=== PATIENT | male | born 1975 | race Caucasian/White ===

== ENCOUNTER → 2016-06-24 | Outpatient (CLI) | payer MEDICAID ==
[~2016-06-24] MED LIST: ASP81TEC PO; DILT120C PO; MULT-35 PO; NO HOME MEDS; OMEP20TA33 PO; RANI150T15 PO; SUCR1TAB36 PO
[2016-06-24 14:43] LABS: CHOLESTEROL 177 MG/DL (< 200); DIRECT LDL 117 MG/DL (1-129); TRIGLYCERIDES 127 MG/DL (<150); VLDL CHOLESTEROL 25 MG/DL (5-40)
== END ==
LOC: LAB 14:22
PROVIDERS: ATTEND Internal Medicine Cardiovascular Disease
DX: I25.10 Atherosclerotic heart disease of native coronary artery without angina pectoris (principal); R07.9 Chest pain, unspecified; I34.0 Nonrheumatic mitral (valve) insufficiency; I07.1 Rheumatic tricuspid insufficiency
CPT/HCPCS: 36415; 80061

== ENCOUNTER → 2016-06-29 | Outpatient (CLI) | payer MEDICAID ==
--- NOTE | 2016-06-29 14:06 | Diagnostic Imaging Report ---
PROCEDURE: US Gallbladder. TECHNIQUE: Multiple real-time grayscale images were obtained over the right upper quadrant in various projections. INDICATION: Heartburn. Chest pain. FINDINGS: The pancreas visualized portions appear unremarkable. The liver demonstrates no focal mass. It is slightly enlarged measuring 20 cm in craniocaudal dimension in the right hepatic lobe level. Hepatopetal flow in the portal vein is seen. There is a 1.1 cm hyperechoic lesion seen in the gallbladder without shadowing compatible with sludge ball. It was seen moving within the gallbladder lumen during the scan. There are multiple gallbladder polyps as well up to 4 mm in size. No stones or wall thickening seen. No pericholecystic fluid. The CBD is 2 mm in caliber. The right kidney is 9.7 cm in length with no hydronephrosis or focal lesion. No ascites or fluid collection is seen. Sonographic Beltran's sign is reportedly negative. IMPRESSION: 1. Mild hepatomegaly with no focal liver mass. 2. The gallbladder has multiple polyps up to 4 mm in size and a sludge ball in the abdomen measuring 1.1 cm. No gallstones or evidence of cholecystitis, however. Dictated by: Dictated on workstation # [id number]
== END ==
LOC: RAD 06:48
PROVIDERS: ATTEND Surgery
DX: K82.4 Cholesterolosis of gallbladder (principal); R16.0 Hepatomegaly, not elsewhere classified
CPT/HCPCS: 76705

== ENCOUNTER 2016-07-05 15:40 | Outpatient (CLI) | payer MEDICAID ==
--- OUTSIDE RECORDS SUMMARY | 2016-07-04 05:49 | XMS REPORT | Continuity of Care Document ---
Author Author [facility] C[facility] of [facility] Ctr [facility] Address Unknown Phone Unavailable Allergies Medications Problems Date Dx Coded Attending Type Code Diagnosis Diagnosed By 12/26/2008 ED CRUZ MD 692.9 CONTACT DERMATITIS AND OTHER ECZEMA UNSPECIFIED CAUSE 12/26/2008 ED CRUZ MD 780.2 SYNCOPE AND COLLAPSE 12/26/2008 ED CRUZ MD V17.49 FAMILY HISTORY OF OTHER CARDIOVASCULAR DISEASES 12/26/2008 ED CRUZ MD V18.0 FAMILY HISTORY OF DIABETES MELLITUS 12/26/2008 MUNIRA MIGUEL DO 692.9 CONTACT DERMATITIS AND OTHER ECZEMA UNSPECIFIED CAUSE 12/26/2008 MUNIRA MIGUEL DO 780.2 SYNCOPE AND COLLAPSE 12/26/2008 MUNIRA MIGUEL DO V17.49 FAMILY HISTORY OF OTHER CARDIOVASCULAR DISEASES 12/26/2008 MUNIRA MIGUEL DO V18.0 FAMILY HISTORY OF DIABETES MELLITUS 12/26/2008 MICHAEL BOTELLO APRN S 692.9 CONTACT DERMATITIS AND OTHER ECZEMA UNSPECIFIED CAUSE 12/26/2008 ATA BOTELLO APRNA S 780.2 SYNCOPE AND COLLAPSE 12/26/2008 ATA BOTELLO APRNA S V17.49 FAMILY HISTORY OF OTHER CARDIOVASCULAR DISEASES 12/26/2008 MICHAEL BOTELLO APRN S V18.0 FAMILY HISTORY OF DIABETES MELLITUS 12/26/2008 ENRIQUE ANAYA VICENTA R 692.9 CONTACT DERMATITIS AND OTHER ECZEMA UNSPECIFIED CAUSE 12/26/2008 ENRIQUE SALES CLERK, VICENTA R 780.2 SYNCOPE AND COLLAPSE 12/26/2008 ENRIQUE ANAYA VICENTA R V17.49 FAMILY HISTORY OF OTHER CARDIOVASCULAR DISEASES 12/26/2008 ENRIQUE ANAYA VICENTA R V18.0 FAMILY HISTORY OF DIABETES MELLITUS 01/04/2009 ED CRUZ MD 251.2 HYPOGLYCEMIA UNSPECIFIED 01/04/2009 MUNIRA MIGUEL DO 251.2 HYPOGLYCEMIA UNSPECIFIED 01/04/2009 ROSMERY SALES CLERK, MICHAEL S 251.2 HYPOGLYCEMIA UNSPECIFIED 01/04/2009 VICENTA NUNEZ APRN R 251.2 HYPOGLYCEMIA UNSPECIFIED 11/15/2010 ED CRUZ MD 724.3 SCIATICA 11/15/2010 MUNIRA MIGUEL DO K 724.3 SCIATICA 11/15/2010 MICHAEL BOTELLO APRN S 724.3 SCIATICA 11/15/2010 VICENTA NUNEZ APRN R 724.3 SCIATICA 04/25/2011 ED CRUZ MD 719.41 joint pain, localized in the left shoulder 04/25/2011 MUNIRA MIGUEL DO K 719.41 joint pain, localized in the left shoulder 04/25/2011 MICHAEL BOTELLO APRN S 719.41 joint pain, localized in the left shoulder 04/25/2011 VICENTA NUNEZ APRN R 719.41 joint pain, localized in the left shoulder 07/20/2011 ED CRUZ MD 530.81 ESOPHAGEAL REFLUX 07/20/2011 ED CRUZ MD 715.11 OSTEOARTHROSIS LOCALIZED PRIMARY INVOLVING SHOULDER REGION 07/20/2011 MUNIRA MIGUEL DO K 530.81 ESOPHAGEAL REFLUX 07/20/2011 KELTON MIGUEL DOA K 715.11 OSTEOARTHROSIS LOCALIZED PRIMARY INVOLVING SHOULDER REGION 07/20/2011 MICHAEL BOTELLO APRN S 530.81 ESOPHAGEAL REFLUX 07/20/2011 MICHAEL BOTELLO APRN S 715.11 OSTEOARTHROSIS LOCALIZED PRIMARY INVOLVING SHOULDER REGION 07/20/2011 VICENTA NUNEZ APRN R 530.81 ESOPHAGEAL REFLUX 07/20/2011 VICENTA NUNEZ APRN R 715.11 OSTEOARTHROSIS LOCALIZED PRIMARY INVOLVING SHOULDER REGION 01/06/2012 ED CRUZ MD V05.3 TWINRIX DX 01/06/2012 ED CRUZ MD V06.1 TDAP DX 01/06/2012 ED CRUZ MD V74.1 TB SCREENING 01/06/2012 KELTON MIGUEL DOA K V05.3 TWINRIX DX 01/06/2012 KELTON MIGUEL DOA K V06.1 TDAP DX 01/06/2012 KELTON MIGUEL DOA K V74.1 TB SCREENING 01/06/2012 MICHAEL BOTELLO APRN V05.3 TWINRIX DX 01/06/2012 MICHAEL BOTELLO APRN S V06.1 TDAP DX 01/06/2012 MICHAEL BOTELLO APRN V74.1 TB SCREENING 01/06/2012 VICENTA NUNEZ APRN V05.3 TWINRIX DX 01/06/2012 VICENTA NUNEZ APRN V06.1 TDAP DX 01/06/2012 VICENTA NUNEZ APRN V74.1 TB SCREENING 09/30/2013 ED CRUZ MD 729.5 PAIN IN LIMB 09/30/2013 ED CRUZ MD V70.0 EXAM - ROUTINE H&P 09/30/2013 MIGUEL DO, MUNIRA K 729.5 PAIN IN LIMB 09/30/2013 MIGUEL DO, MUNIRA K V70.0 EXAM - ROUTINE H&P 09/30/2013 MICHAEL BOTELLO APRN 729.5 PAIN IN LIMB 09/30/2013 MICHAEL BOTELLO APRN V70.0 EXAM - ROUTINE H&P 09/30/2013 VICENTA NUNEZ APRN 729.5 PAIN IN LIMB 09/30/2013 VICENTA NUNEZ APRN V70.0 EXAM - ROUTINE H&P 10/23/2013 MIGUEL DO, MUNIRA K 726.10 DISORDERS OF BURSAE AND TENDONS IN SHOULDER REGION UNSPECIFIED 10/23/2013 MICHAEL BOTELLO APRN 726.10 DISORDERS OF BURSAE AND TENDONS IN SHOULDER REGION UNSPECIFIED 10/23/2013 VICENTA NUNEZ APRN 726.10 DISORDERS OF BURSAE AND TENDONS IN SHOULDER REGION UNSPECIFIED 02/16/2014 MICHAEL BOTELLO APRN 719.47 PAIN- FOOT 02/16/2014 VICENTA NUNEZ APRN 719.47 PAIN- FOOT 08/08/2014 VICENTA NUNEZ APRN 719.46 PAIN IN JOINT INVOLVING LOWER LEG Procedures Code Description Performed By Performed On JOINT INJECTION- INTERMEDIATE JOINT 10/23/2013 01881 XRAY FOOT LEFT 2 VIEWS 02/16/2014 33692 XRAY KNEE RIGHT 1 OR 2 VIEWS 08/08/2014 Results Encounters ACCT No. Visit Date/Time Discharge Status Pt. Type Provider Facility Loc./Unit Complaint [id number] 08/08/2014 12:22:00 08/08/2014 23: 59:59 CLS Outpatient VICENTA NUNEZ APRN [id number] 02/16/2014 15:33:00 02/16/2014 23: 59:59 CLS Outpatient MICHAEL BOTELLO APRN [id number] 10/23/2013 15:31:00 10/23/2013 23: 59:59 CLS Outpatient MUNIRA MIGUEL DO [id number] 09/30/2013 08:57:00 09/30/2013 23: 59:59 CLS Outpatient ANTHONY BOYCE, ED
[~2016-07-05] VITALS: Ht 180.3 cm; Wt 83.5 kg
[~2016-07-05 15:40] MED LIST changes: -MULT-35 PO; -OMEP20TA33 PO; -RANI150T15 PO; -SUCR1TAB36 PO
[2016-07-05] MEDS ORDERED: MULT-35 PO (15:44)
[2016-07-05] MEDS ORDERED: RANI150T15 PO (15:44)
[2016-07-06] MEDS ORDERED: SUCR1TAB36 PO (13:14)
[2016-07-06] MEDS ORDERED: OMEP20TA33 PO (13:14)
== END 2016-07-05 15:49 ==
LOC: PREOP 15:40
PROVIDERS: ATTEND Surgery
DX: Z01.818 Encounter for other preprocedural examination (principal); K21.9 Gastro-esophageal reflux disease without esophagitis

== ENCOUNTER 2016-07-06 11:46 | Day surgery (SDC) | payer MEDICAID ==
[~2016-07-06] VITALS: Ht 180.3 cm; Wt 83.5 kg
[~2016-07-06 11:46] MED LIST changes: +MULT-35 PO; +RANI150T15 PO
--- OUTSIDE RECORDS SUMMARY | 2016-07-06 11:49 | XMS REPORT | Continuity of Care Document ---
Author Author [facility], [facility] Ctr of [facility] Ctr [facility] Address Unknown Phone Unavailable Allergies [...] APRNA S 780.2 SYNCOPE AND COLLAPSE 12/26/2008 MICHAEL BOTELLO APRN S V17.49 FAMILY HISTORY OF OTHER CARDIOVASCULAR DISEASES 12/26/2008 MICHAEL BOTELLO APRN S V18.0 FAMILY HISTORY OF DIABETES MELLITUS 12/26/2008 ENRIQUE ANAYA VICENTA R 692.9 CONTACT DERMATITIS AND OTHER ECZEMA UNSPECIFIED CAUSE 12/26/2008 ENRIQUE DERRICK BOAT CAPTAIN, VICENTA R 780.2 SYNCOPE AND COLLAPSE 12/26/2008 ENRIQUE ANAYA VICENTA R V17.49 FAMILY HISTORY OF OTHER CARDIOVASCULAR DISEASES 12/26/2008 ENRIQUE ANAYA VICENTA R V18.0 FAMILY HISTORY OF DIABETES MELLITUS 01/04/2009 ED CRUZ MD 251.2 HYPOGLYCEMIA UNSPECIFIED 01/04/2009 MUNIRA MIGUEL DO 251.2 HYPOGLYCEMIA UNSPECIFIED 01/04/2009 ROSMERY DERRICK BOAT CAPTAIN, MICHAEL S 251.2 HYPOGLYCEMIA UNSPECIFIED 01/04/2009 VICENTA [...] Performed On JOINT INJECTION- INTERMEDIATE JOINT 10/23/2013 85195 XRAY FOOT LEFT 2 VIEWS 02/16/2014 19080 XRAY KNEE RIGHT 1 OR 2 VIEWS 08/08/2014 Results Encounters ACCT No. Visit Date/Time Discharge Status Pt. Type Provider Facility Loc./Unit Complaint [id number] 08/08/2014 12:22:00 08/08/2014 23: 59:59 CLS Outpatient VICENTA NUNEZ APRN [id number] 02/16/2014 15:33:00 02/16/2014 23: 59:59 CLS Outpatient MICHAEL BOTELLO APRN [id number] 10/23/2013 15:31:00 10/23/2013 23: 59:59 CLS Outpatient MUNIRA MIGUEL DO [id number] 09/30/2013 08:57:00 09/30/2013 23: 59:59 CLS Outpatient ANTHONY BOYCE, ED
--- OUTSIDE RECORDS SUMMARY | 2016-07-06 11:50 | XMS REPORT | Continuity of Care Document ---
Author Author Count Includes [facility] Ctr of [facility] Ctr [facility] Address Unknown Phone Unavailable Allergies Medications [...] AND OTHER ECZEMA UNSPECIFIED CAUSE 12/26/2008 ENRIQUE PERFORMANCE SOLUTIONS SPECIALIST, VICENTA R 780.2 SYNCOPE AND COLLAPSE 12/26/2008 ENRIQUE ANAYA VICENTA R V17.49 FAMILY HISTORY OF OTHER CARDIOVASCULAR DISEASES 12/26/2008 ENRIQUE ANAYA VICENTA R V18.0 FAMILY HISTORY OF DIABETES MELLITUS 01/04/2009 ED CRUZ MD 251.2 HYPOGLYCEMIA UNSPECIFIED 01/04/2009 MUNIRA MIGUEL DO 251.2 HYPOGLYCEMIA UNSPECIFIED 01/04/2009 ROSMERY PERFORMANCE SOLUTIONS SPECIALIST, MICHAEL S 251.2 HYPOGLYCEMIA UNSPECIFIED 01/04/2009 VICENTA [...] APRN S 530.81 ESOPHAGEAL REFLUX 07/20/2011 MICHAEL OBTELLO APRN S 715.11 OSTEOARTHROSIS LOCALIZED PRIMARY INVOLVING [...] Performed On JOINT INJECTION- INTERMEDIATE JOINT 10/23/2013 83162 XRAY FOOT LEFT 2 VIEWS 02/16/2014 83844 XRAY KNEE RIGHT 1 OR 2 VIEWS 08/08/2014 Results Encounters ACCT No. Visit Date/Time Discharge Status Pt. Type Provider Facility Loc./Unit Complaint [id number] 08/08/2014 12:22:00 08/08/2014 23: 59:59 CLS Outpatient VICENTA NUNEZ APRN [id number] 02/16/2014 15:33:00 02/16/2014 23: 59:59 CLS Outpatient MICHAEL BOTELLO APRN [id number] 10/23/2013 15:31:00 10/23/2013 23: 59:59 CLS Outpatient MUNIRA MIGUEL DO [id number] 09/30/2013 08:57:00 09/30/2013 23: 59:59 CLS Outpatient ANTHONY BOYCE, ED
[2016-07-06] MEDS ORDERED: NS IV 1000 ML 1,000 ML IV STA (11:55)
[2016-07-06] MEDS ORDERED: NS IV 1000 ML 1,000 ML ONE (11:57)
[2016-07-06] MEDS ORDERED: HURRICAINE EXT TUBE (BENZOCAINE) XX PRN (12:00)
[2016-07-06] MEDS ORDERED: MIDAZOLAM 2 MG/2 ML (VERSED) VIAL ONE (12:11)
[2016-07-06] MEDS ORDERED: proPOfol 200 MG/20 ML (DIPRIVAN) VIAL IV ONE (12:11)
[2016-07-06 12:14] VITALS: BP 120/86
--- NOTE | 2016-07-06 12:57 | Progress Note-Pre Operative ---
Pre-Operative Progress Note H&P Reviewed The H&P was reviewed, patient examined and no changes noted. Date H&P Reviewed: Jul 06, 2016 Time H&P Reviewed: 12:54 Pre-Operative Diagnosis: Gastritis MARGOT BURKS DO Jul 06, 2016 12:57
--- NOTE | 2016-07-06 13:12 | Progress Note-Post Operative ---
Post-Operative Progess Note Emt/Dispatcher None Pre-Operative Diagnosis Gastritis Post-Operative Diagnosis Mod-severe Gastritis, old healing ulcers Post-Op Procedure Note Date of Procedure: Jul 06, 2016 Name of Procedure: EGD with bx, duodenum, antrum and cardia Anesthesia Type iv sedation by Dr. Birch Estimated blood loss (mL): scant Specimen(s) collected 3 bx, antrum, 1st portion duodenum, cardia MARGOT BURKS DO Jul 06, 2016 13:12
[2016-07-06] MEDS ORDERED: OMEP20TA33 PO (13:14)
[2016-07-06] MEDS ORDERED: SUCR1TAB36 PO (13:14)
--- NOTE | 2016-07-06 13:16 | Endoscopy Discharge Instruct ---
Findings Findings 1.: Gastritis Discharge Instructions - Activity: You might feel a little sleepy until tomorrow. This is due to the medicine you received to relax you. Until tomorrow, you should: NOT drive a car, operate machinery or power tools. NOT drink any alcoholic beverages. NOT make any important decisions or sign importortant papers. Do not return to work until tomorrow, unless otherwise instructed. Resume previous activities tomorrow. Diet: Start by taking liquids. If you tolerate liquids, advance to solid food. Instructions: 1.: Reflux Diet, EGD in 1 year Notify Physician - If you experience excessive bleeding, unusual abdominal pain, fever, or chest pain, contact your doctor immediately. Phone number [phone] Anticoagulants - Hold aspirin Follow-Up: Follow Up: Weeks (one week) - I have received and understand the above instructions and will call my doctor if I have any further questions. Patient Signature Date Nurse Signature Other (Relationship) MARGOT BURKS DO Jul 06, 2016 13:16
[2016-07-06 13:35] VITALS: BP 105/66
[2016-07-06 14:00] VITALS: BP 107/79
[2016-07-06 15:16] VITALS: BP 107/79
--- NOTE | 2016-07-07 23:42 | OPERATIVE REPORT ---
PROCEDURE PHYSICIAN: MARGOT BURKS DATE OF PROCEDURE: 07/06/2016 PREOPERATIVE DIAGNOSIS: Possible gastritis. POSTOPERATIVE DIAGNOSIS: Moderate to severe gastritis. PROCEDURE: EGD with 3 biopsies, 1 in the duodenum, 1 in the antrum, and 1 in the cardia. SURGEON: Dr. Bonnie CHANEY ASSIST: None. ANESTHESIA: IV sedation by Dr. Birch with propofol. SPECIMEN: 1 biopsy from the duodenum, 1 from antrum, and 1 from the cardia. BLOOD LOSS: Scant. FLUIDS: Per anesthesia. POSTOPERATIVE: Stable. INDICATIONS FOR THE PROCEDURE: The patient is a 41-year-old male has been having multiple episodes of chest pains. He has had a full cardiac work-up and needed to find out if he had any gastric problems. Also ultrasound had been ordered. FINDINGS: The patient had severe gastritis, especially in the cardia and then looked like in the antrum and actually first portion of the duodenum, had some healing ulcers. PROCEDURE NOTE: After informed consent was obtained, the patient was brought to the endoscopy suite and placed in the left lateral decubitus position. He was administered IV sedation and monitored the entire time by the anesthesiologist. The scope was inserted down the mouth, passed the oropharynx, into the esophagus and down in the stomach. Upon entering the stomach, noted some erythema and severe gastritis, pushed through to the antrum, saw some possibly old healing ulcers here and then pushed into the first portion of duodenum and again saw some redness and little bit that may have been possibly old healing ulcers. I took a picture this and then did a biopsy here and removed the scope, did a biopsy antrum and then pulled it back a little bit further and then did a biopsy of the cardia of the stomach. Then retroflexed, did not really appear to have a large hiatal hernia, but may have had a very small one and then reversed this and then slowly withdrew the scope up to the GE junction. Took a picture, looked good and then up the esophagus and out the oropharynx. The patient tolerated the procedure and he was transferred to recovery room in stable condition. Job ID: [id number] Dictated Date: 07/06/2016 13:18:49 [employer]orer [employer] Date: 07/07/2016 23:31:48 / reuben
== END 2016-07-06 14:05 | disposition home or self-care (01) ==
LOC: ENDO 11:46
PROVIDERS: ATTEND Surgery
DX: K21.9 Gastro-esophageal reflux disease without esophagitis (principal); K25.7 Chronic gastric ulcer without hemorrhage or perforation; K29.50 Unspecified chronic gastritis without bleeding; B96.81 Helicobacter pylori [H. pylori] as the cause of diseases classified elsewhere
CPT/HCPCS: 88305

== ENCOUNTER → 2016-07-26 | Outpatient (CLI) | payer MEDICAID ==
[~2016-07-26] MED LIST changes: +OMEP20TA33 PO; +SUCR1TAB36 PO
--- OUTSIDE RECORDS SUMMARY | 2016-07-26 13:01 | XMS REPORT | Continuity of Care Document ---
Author Author [facility] Ctr of [facility] Ctr [facility] Address Unknown Phone Unavailable Allergies Medications Problems [...] AND OTHER ECZEMA UNSPECIFIED CAUSE 12/26/2008 ENRIQUE ARNP, VICENTA R 780.2 SYNCOPE AND COLLAPSE 12/26/2008 ENRIQUE ANAYA VICENTA R V17.49 FAMILY HISTORY OF OTHER CARDIOVASCULAR DISEASES 12/26/2008 ENRIQUE ANAYA VICENTA R V18.0 FAMILY HISTORY OF DIABETES MELLITUS 01/04/2009 ED CRUZ MD 251.2 HYPOGLYCEMIA UNSPECIFIED 01/04/2009 MUNIRA MIGUEL DO 251.2 HYPOGLYCEMIA UNSPECIFIED 01/04/2009 ROSMERY ARNP, MICHAEL S 251.2 HYPOGLYCEMIA UNSPECIFIED 01/04/2009 VICENTA [...] Performed On JOINT INJECTION- INTERMEDIATE JOINT 10/23/2013 62848 XRAY FOOT LEFT 2 VIEWS 02/16/2014 00679 XRAY KNEE RIGHT 1 OR 2 VIEWS 08/08/2014 Results Encounters ACCT No. Visit Date/Time Discharge Status Pt. Type Provider Facility Loc./Unit Complaint [id number] 08/08/2014 12:22:00 08/08/2014 23: 59:59 CLS Outpatient VICENTA NUNEZ APRN [id number] 02/16/2014 15:33:00 02/16/2014 23: 59:59 CLS Outpatient MICHAEL BOTELLO APRN [id number] 10/23/2013 15:31:00 10/23/2013 23: 59:59 CLS Outpatient MUNIRA MIGUEL DO [id number] 09/30/2013 08:57:00 09/30/2013 23: 59:59 CLS Outpatient ANTHONY BOYCE, ED
--- NOTE | 2016-07-27 08:18 | ECHOCARDIOGRAPHY REPORT ---
PROCEDURE PHYSICIAN: KRISTI POWELL DATE OF PROCEDURE: 07/26/2016 TWO DIMENSIONAL ECHOCARDIOGRAM REPORT PRIMARY PHYSICIAN: OTHER PHYSICIAN: REFERRING PHYSICIAN: Dr. Shireen Biswas ORDERING PHYSICIAN: INDICATION FOR THE PROCEDURE: 1. Coronary artery disease. 2. Chest pain. MEASUREMENTS DERIVED VALUES LV DIAMETER (LAX) NORMALS NORMALS Diastolic 4.7 (3.6-5.2) Eject. Fract. 60% (60%+/-6%) Systolic (2.3-3.9) Diastolic Vol. % Shortening (0.22-0.42) Systolic Vol. Aortic Root IVS THICKNESS Diastolic 1 (0.6-1.1) LVPW THICKNESS Diastolic 1 (0.6-1.1) LA DIAMETER Systolic 2.5 (2.1-3.7) FINDINGS: 1. Technical quality is good. 2. The left ventricle is normal in size with normal contractility. Systolic function appeared to be normal. Estimated ejection fraction 60%. 3. The left atrium is normal in size. No clot or thrombus were seen within the left atrium. 4. The right atrium and right ventricle are normal in size. No clot or thrombus were seen within the right side. 5. Mitral valve evaluation showed mitral annular calcification with mild mitral regurgitation noted by color Doppler flow. No mitral valve prolapse. No mitral valve stenosis. 6. Aortic valve is trileaflet with normal opening and closing pattern. No significant aortic stenosis or regurgitation was seen. 7. Tricuspid valve is normal in morphology with mild tricuspid regurgitation noted by color Doppler flow. Doppler across tricuspid valve estimated pulmonary artery pressure of 22+ right atrial pressure. 8. Pulmonic valve is functioning normally. 9. No pericardial effusion. IN CONCLUSION: 1. Normal left ventricular size and systolic function. Estimated ejection fraction 60%. 2. Mild mitral and tricuspid regurgitation. 3. Estimated pulmonary artery pressure of 30 mmHg. Job ID: [id number] Dictated Date: 07/26/2016 17:10:10 Scrap Worker Date: 07/27/2016 08:15:20 / reuben
--- NOTE | 2016-07-27 09:33 | STRESS TEST ---
PROCEDURE PHYSICIAN: KRISTI POWELL DATE OF PROCEDURE: 07/26/2016 EXERCISE STRESS ECHOCARDIOGRAM REPORT: REFERRING PHYSICIAN: Dr. Shireen Biswas. INDICATION: 1. Coronary artery disease. 2. Chest pain. BASELINE HEART RATE: 63 BASELINE BLOOD PRESSURE: 112/66 BASELINE EKG: Sinus rhythm with no ischemic changes. IN SUMMARY: The patient started exercising with a baseline heart rate, EKG and blood pressure mentioned above. He was able to exercise for a total of 12 minutes on standard Jaspreet protocol, achieving maximum heart rate of 166, which is 94% of maximum expected heart rate. With peak exercise level, EKG was showing no ischemic changes. Blood pressure was 155/65. During recovery, heart rate and blood pressure returned to baseline. EKG returned to baseline. Echocardiographic images were acquired and reviewed in the parasternal long axis, parasternal short axis, apical 4 chamber and apical 2 chamber views. Review of the images showed normal left ventricular size with normal contractility with no ischemic changes. IN CONCLUSION: 1. Excellent exercise tolerance a total of 12 minutes on standard Jaspreet protocol. Total of 12.8 METs achieving 94% of maximum expected heart rate. 2. Appropriate heart rate and blood pressure response to exercise, returned to baseline during recovery. 3. No arrhythmia or ischemic changes EKG during the stress test. 4. Normal echocardiographic images at rest and with peak stress images with no ischemic changes with normal contractility and normal ejection fraction. Job ID: [id number] Dictated Date: 07/26/2016 17:14:[address] Date: 07/27/2016 09:30:01 / reuben
== END ==
LOC: CARD 12:57
PROVIDERS: ATTEND Internal Medicine Cardiovascular Disease
DX: I25.10 Atherosclerotic heart disease of native coronary artery without angina pectoris (principal); R07.9 Chest pain, unspecified; I34.0 Nonrheumatic mitral (valve) insufficiency; I07.1 Rheumatic tricuspid insufficiency
CPT/HCPCS: 93306; 93351

== ENCOUNTER → 2016-10-15 | Outpatient (CLI) | payer MEDICAID ==
[2016-10-15 22:44] LABS: ALBUMIN 4.6 G/DL (3.2-4.5); BILIRUBIN,DIRECT 0.2 MG/DL (0.0-0.3); BILIRUBIN,INDIRECT 0.6 MG/DL; BILIRUBIN,TOTAL 0.8 MG/DL (0.1-1.0); TOTAL PROTEIN 7.4 G/DL (6.4-8.2)
== END ==
LOC: LABNPT 22:18
PROVIDERS: ATTEND Physician Assistant
DX: E78.2 Mixed hyperlipidemia (principal)
CPT/HCPCS: 80061; 80076

== ENCOUNTER → 2017-02-09 | Outpatient (CLI) | payer MEDICAID ==
[2017-02-09 12:04] LABS: ALBUMIN 4.3 GM/DL (3.2-4.5); BILIRUBIN,DIRECT 0.2 MG/DL (0.0-0.3); BILIRUBIN,INDIRECT 0.5 MG/DL; BILIRUBIN,TOTAL 0.7 MG/DL (0.1-1.0); TOTAL PROTEIN 7.2 GM/DL (6.4-8.2)
== END ==
LOC: LAB 11:39
PROVIDERS: ATTEND Physician Assistant
DX: I25.10 Atherosclerotic heart disease of native coronary artery without angina pectoris (principal); E78.2 Mixed hyperlipidemia
CPT/HCPCS: 36415; 80061; 80076

== ENCOUNTER → 2020-12-05 | Outpatient (CLI) | payer OTHER ==
[~2020-12-05] MED LIST changes: +RANI-613 PO; -RANI150T15 PO
--- NOTE | 2020-12-05 14:38 | Diagnostic Imaging Report ---
INDICATION: Cough. FINDINGS: Two views of the chest demonstrate lungs to be clear. The heart, mediastinum, pulmonary vascularity and visualized bony thorax are normal. IMPRESSION: Negative chest. Dictated by: Dictated on workstation # [id number]
== END ==
LOC: RAD 13:53
PROVIDERS: ATTEND Nurse Practitioner Family
DX: R05 Cough (principal)
CPT/HCPCS: 71046

== ENCOUNTER → 2021-01-26 | Outpatient (CLI) | payer OTHER ==
[~2021-01-26] MED LIST changes: +HOLD METFORMIN - RECEIVED CONTRAST 20 ML VIAL IV SCH; +IOHEXOL 350 MG/ML 100 ML (OMNIPAQUE 350) VIAL IV ONE; +NS 100 ML (IVPB) BAG IV ONE
--- NOTE | 2021-01-26 15:34 | Diagnostic Imaging Report ---
PROCEDURE: CT chest with contrast only. TECHNIQUE: Multiple contiguous axial images were obtained through the chest after administration of intravenous contrast. Auto Exposure Controls were utilized during the CT exam to meet ALARA standards for radiation dose reduction. INDICATION: Cough and smoking history. No prior CT chest studies are available for comparison. No axillary or supraclavicular lymphadenopathy is identified. No definite mediastinal or hilar lymphadenopathy is detected. There is no pericardial or pleural fluid identified. There is a 5 mm nodule in the right middle lobe, along the minor fissure. No other pulmonary nodules are identified. The upper abdomen is unremarkable. IMPRESSION: No evidence of thoracic lymphadenopathy. There is a 5 mm micronodule in the right middle lobe, indeterminate. Follow-up CT chest in 6-12 months could be performed to confirm stability. Dictated by: Dictated on workstation # [id number]
== END ==
LOC: RAD 14:21
PROVIDERS: ATTEND Emergency Medicine
DX: R91.1 Solitary pulmonary nodule (principal); Z87.891 Personal history of nicotine dependence
CPT/HCPCS: 71260